=== PATIENT | female | born 1980 | race Caucasian/White ===

== ENCOUNTER 2019-07-29 06:51 | Emergency (ER) | payer OTHER, SELFPAY ==
[2019-07-29 06:54] VITALS: BP 130/68; PULSE 77; RESP 18; TEMP 36.7; O2SAT 100; BMI 25.8
--- NOTE | 2019-07-29 07:10 | CT_ITS ---
WS: [id number] CT ABDOMEN PELVIS TECHNIQUE: Noncontrast and Contrast-enhanced CT of the abdomen and pelvis with coronal and sagittal r eformatted images. CLINICAL INFORMATION: abd pain COMPARISON: April 29, 2014 DLP: 883.19 mGy.cm (accession [id number]), 1234.69 mGy.cm (accession [id number]) All CT scans at [facility] use at least one of these dose optimization techniques: automat ed exposure control; mA and/or kV adjustment per patient size (includes targeted exams where dose is matched to clinical indication); or iterative reconstruction. FINDINGS: No obstructing renal or ureteral calculi. Tiny nonobstructing right calyceal tip calculus. Normal glenis al parenchymal enhancement. No hydronephrosis. Small left renal cyst. Normal liver. Normal gallbladder. Normal spleen. Pancreas is normal. Lung bases are well aerated. Nor mal caliber abdominal aorta. Adrenal glands are normal. Normal GE junction. Peripheral enhancing hemorrhagic or corpus luteum cyst right ovary measuring 3.6 x 3.2 CCM. Small kelsea unt of fluid around the right ovary. Small amount of free fluid in the cul-de-sac. No evidence of small or large bowel obstruction. Normal terminal ileum and ileocecal valve. Notified Valerio Velázquez DO at 07/29/2019 8:[address]/CT kidney stone [id number] IMPRESSION: 1. No obstructing renal or ureteral calculi. 2. Peripheral enhancing right ovarian cyst likely hemorrhagic or corpus luteum Cyst measuring 3.6 x 3.2 CM. This can be followed up with ultrasound in one to 2 menstrual cycles. 3. Small amount of free fluid in the cul-de-sac. 4. No hydronephrosis.
--- NOTE | 2019-07-29 07:10 | CT_ITS ---
WS: [id number] CT ABDOMEN PELVIS TECHNIQUE: Noncontrast and Contrast-enhanced CT of the abdomen and pelvis with coronal and sagittal r eformatted images. CLINICAL INFORMATION: abd pain COMPARISON: April 29, 2014 DLP: 883.19 mGy.cm (accession [id number]), 1234.69 mGy.cm (accession [id number]) All CT scans at [facility] use at least one of these dose optimization techniques: automat ed exposure control; mA and/or kV adjustment per patient size (includes targeted exams where dose is matched to clinical indication); or iterative reconstruction. FINDINGS: No obstructing renal or ureteral calculi. Tiny nonobstructing right calyceal tip calculus. Normal glenis al parenchymal enhancement. No hydronephrosis. Small left renal cyst. Normal liver. Normal gallbladder. Normal spleen. Pancreas is normal. Lung bases are well aerated. Nor mal caliber abdominal aorta. Adrenal glands are normal. Normal GE junction. Peripheral enhancing hemorrhagic or corpus luteum cyst right ovary measuring 3.6 x 3.2 CCM. Small kelsea unt of fluid around the right ovary. Small amount of free fluid in the cul-de-sac. No evidence of small or large bowel obstruction. Normal terminal ileum and ileocecal valve. Notified Valerio Velázquez DO at 07/29/2019 8:[address]/CT abdomen pelvis w con* [id number] IMPRESSION: 1. No obstructing renal or ureteral calculi. 2. Peripheral enhancing right ovarian cyst likely hemorrhagic or corpus luteum Cyst measuring 3.6 x 3.2 CM. This can be followed up with ultrasound in one to 2 menstrual cycles. 3. Small amount of free fluid in the cul-de-sac. 4. No hydronephrosis.
--- NOTE | 2019-07-29 07:14 | ED_ITS ---
HPI - Abdominal Pain General: Chief Complaint: Abdominal Pain Stated Complaint: abd pain/vomiting Time Seen by Provider: 07/29/19 06:56 History of Present Illness: Associated Symptoms: Reports nausea and vomiting Related Data: Date of Last Menstrual Period: 07/29/19 Review of Systems General: Reports: 10 or more systems reviewed and unremarkable except in HPI and below GI: Reports: abdominal pain, nausea and vomiting PFSH ED PFSH: Social History Smoking and tobacco status: former smoker Female Reproductive History: Date of last menstrual period: 07/29/19 Physical Exam Const: COMMON NORMALS: average body habitus, patient oriented x3, no limitations, alert and well nourished GENERAL APPEARANCE: in distress and ill appearing HENMT: COMMON NORMALS: normocephalic, atraumatic, hearing grossly normal bilaterally, external ears normal, EAC's normal, TM's normal bilaterally, Normal external nose present, Normal nasal mucous membranes and turbinates present, moist oral mucous membranes, oropharynx normal, dentition normal and gingiva normal HEAD & SCALP: normocephalic and atraumatic NOSE: Normal external nose present and Normal nasal mucous membranes and turbinates present EXTERNAL EAR: Yes external ears normal EXTERNAL AUDITORY CANAL: EAC's normal TYMPANIC MEMBRANE: TM's normal bilaterally Eye: COMMON NORMALS: Equal, round and reactive pupils present, EOMs intact bilaterally, conjunctivae normal, no scleral icterus, no papilledema, normal visual sierra by confrontation and fundi normal bilaterally CONJUNCTIVA: Yes conjunctivae normal PUPIL: Yes Equal, round and reactive pupils present DIRECT OPHTHALMOSCOPY: Yes no papilledema and Yes fundi normal bilaterally Neck/C-Spine: COMMON NORMALS: full ROM, no lymphadenopathy, supple, no meningeal signs, no JVD, Thyroid normal and No carotid bruits THYROID: Thyroid normal Chest: COMMONS NORMALS: normal inspection of the chest and normal palpation of entire chest wall Resp: COMMON NORMALS: normal respiratory effort, No retractions, No use of accessory muscles, clear to auscultation bilaterally and percussion normal AUSCULTATION: clear to auscultation bilaterally PERCUSSION: percussion normal Cardio: COMMON NORMALS: no JVD, regular rate, regular rhythm, S1 normal heart sound present, S2 normal heart sound present, No gallops present (Cardio), No clicks present (Cardio), No murmurs present (Cardio), No rub (Cardio) and Peripheral pulses 2+ throughout RATE: regular rate RHYTHM: regular rhythm HEART SOUNDS: S1 normal heart sound present and S2 normal heart sound present PERIPHERAL PULSES: Peripheral pulses 2+ throughout GI: COMMON NORMALS: Soft to palpation, No hepatosplenomegaly present, no masses and no bruits PALPATION: Yes Soft to palpation, Yes Tenderness to palpation present (GI) and Yes No hepatosplenomegaly present : COMMON NORMALS: Yes no CVA tenderness and Yes normal external appearance BLADDER/KIDNEY EXAM: Yes no CVA tenderness Back/Pelvis: COMMON NORMALS: no CVA tenderness, thoracic and lumbar spine normal to inspection, no thoracic nor lumbar tenderness, thoraco-lumbar ROM normal and straight leg raise negative bilaterally Extremity: COMMON NORMALS: normal to inspection, full ROM, capillary refill normal, no joint enlargement, no clubbing, cyanosis or edema, no calf tenderness and no pedal edema Neuro: COMMON NORMALS: patient oriented x3 SENSORIUM/ORIENTATION: Yes alert MENINGEAL SIGNS: Yes no meningeal signs Skin: COMMON NORMALS: no rashes or lesions noted, no wounds, turgor normal, no jaundice, no petechiae and no mottling GENERAL SKIN EXAM: no rashes or les ions noted and turgor normal Procedures Intubation Mg Given: 20 Mg Given: 200 Course Vital Signs: Vital signs: Vital Signs Temperature 98.1 F 07/29/19 06:54 Pulse Rate 70 07/29/19 08:30 Respiratory Rate 18 07/29/19 08:30 Blood Pressure 113/64 07/29/19 08:30 Pulse Oximetry 100 07/29/19 08:30 MDM - Abdominal Pain Lab Data: Labs: Lab Results 07/29/19 07/29/19 07/29/19 Range/Units 07:18 07:18 07:18 WBC 4.5 (4.0-10.0) 10^3/ uL RBC 4.61 (4.1-5.3) 10^6/u L Hgb 12.8 (11.5-15.3) g/dL Hct 39.5 (37.0-47.0) % MCV 85.7 (81-99) fL MCH 27.8 L (28.0-34.0) pg MCHC 32.4 (30.0-36.0) g/dL RDW 13.2 (12.1-15.1) % Plt Count 164 (130-400) 10^3/c mm MPV 11.7 H (7.4-10.4) fL Neut % (Auto) 70.9 % Lymph % (Auto) 21.6 % Kendall % (Auto) 7.3 % Eos % (Auto) 0.0 % Baso % (Auto) 0.0 % Neut # (Auto) 3.2 (1.8-7.7) 10^3/u L Lymph # (Auto) 1.0 (0.8-4.8) 10^3/u L Kendall # (Auto) 0.3 (0.2-0.9) 10^3/u L Eos # (Auto) 0.0 (0.0-0.8) 10^3/u L Baso # (Auto) 0.0 (0.0-0.1) 10^3/u L Nucleated RBC % (a uto) 0 % Nucleated RBCs # 0.0 /100WBC Sodium 139 (136-145) mmol/L Potassium 4.0 (3.5-5.1) mmol/L Chloride 104 (98-107) mmol/L Carbon Dioxide 23 (22-29) mmol/L Anion Gap 16.0 (5-19) BUN 19 (6-20) mg/dL Creatinine 0.7 (0.5-0.9) mg/dL GFR Calculation 94.2 (90-130) mL/min Glucose 127 H (65-115) mg/dL Calculated Osmolal ity 286 (285-295) mOsm/k g Lactate 1.1 (0.5-2.2) mmol/L Calcium 9.8 (8.5-10.5) mg/dL Total Bilirubin 0.3 (0.15-1.2) mg/dL AST 19 (0-32) U/L ALT 18 (0-33) U/L Alkaline Phosphata se 54 (35-105) IU/L Total Protein 7.6 (6.6-8.7) g/dL Albumin 4.4 (3.5-5.2) g/dL Globulin 3.2 (1.3-4.6) g/dL Lipase 36 (13-60) U/L HCG, Qual (Negative) Urine Color (Yellow) Urine Appearance (CLEAR) Urine pH (5-7) Ur Specific Gravit y (1.005-1.030) Urine Protein (Negative) Urine Glucose (UA) (Normal) Urine Ketones (Negative) Urine Blood (Negative) Urine Nitrate (Negative) Urine Bilirubin (NEGATIVE) Urine Urobilinogen (Negative) mg/dL Ur Leukocyte Regina ase (Negative) Urine RBC (0-2) /hpf Urine WBC (0-5) /hpf Ur Squamous Epith Cells (0-5) Urine Bacteria (NONE) 07/29/19 07/29/19 Range/Units 07:18 08:30 WBC (4.0-10.0) 10^3/ uL RBC (4.1-5.3) 10^6/u L Hgb (11.5-15.3) g/dL Hct (37.0-47.0) % MCV (81-99) fL MCH (28.0-34.0) pg MCHC (30.0-36.0) g/dL RDW (12.1-15.1) % Plt Count (130-400) 10^3/c mm MPV (7.4-10.4) fL Neut % (Auto) % Lymph % (Auto) % Kendall % (Auto) % Eos % (Auto) % Baso % (Auto) % Neut # (Auto) (1.8-7.7) 10^3/u L Lymph # (Auto) (0.8-4.8) 10^3/u L Kendall # (Auto) (0.2-0.9) 10^3/u L Eos # (Auto) (0.0-0.8) 10^3/u L Baso # (Auto) (0.0-0.1) 10^3/u L Nucleated RBC % (a uto) % Nucleated RBCs # /100WBC Sodium (136-145) mmol/L Potassium (3.5-5.1) mmol/L Chloride (98-107) mmol/L Carbon Dioxide (22-29) mmol/L Anion Gap (5-19) BUN (6-20) mg/dL Creatinine (0.5-0.9) mg/dL GFR Calculation (90-130) mL/min Glucose (65-115) mg/dL Calculated Osmolal ity (285-295) mOsm/k g Lactate (0.5-2.2) mmol/L Calcium (8.5-10.5) mg/dL Total Bilirubin (0.15-1.2) mg/dL AST (0-32) U/L ALT (0-33) U/L Alkaline Phosphata se (35-105) IU/L Total Protein (6.6-8.7) g/dL Albumin (3.5-5.2) g/dL Globulin (1.3-4.6) g/dL Lipase (13-60) U/L HCG, Qual Negative (Negative) Urine Color Red (Yellow) Urine Appearance Bloody A (CLEAR) Urine pH 6.0 (5-7) Ur Specific Gravit y 1.005 (1.005-1.030) Urine Protein Neg (Negative) Urine Glucose (UA) Norm (Normal) Urine Ketones Negative (Negative) Urine Blood 3+ H (Negative) Urine Nitrate Negative (Negative) Urine Bilirubin Neg (NEGATIVE) Urine Urobilinogen Norm (Negative) mg/dL Ur Leukocyte Regina ase Negative (Negative) Urine RBC >100 H (0-2) /hpf Urine WBC 0-4 H (0-5) /hpf Ur Squamous Epith Cells 0-4 H (0-5) Urine Bacteria Trace (NONE) Discharge Plan Discharge Patient Disposition: Home, Self-Care Clinical Impression: Hemorrhagic cyst of right ovary Ovarian cyst Qualifiers: Laterality: right Qualified Code(s): N83.201 - Unspecified ovarian cyst, right side Condition: Stable Prescriptions: New Tylenol-Codeine #3 300-30 mg tablet 1 tab PO Q4H PRN (Reason: pain) Qty: 20 RF: 0 No Action No Known Home Medications RF: 0 Discharge Orders: Discharge Order (Routine); Ordered 07/29/19 Ordered By: Valerio Velázquez Referrals: Xavier Johns MD [Primary Care Provider] - Coding Level of Care Code ED Sleeve [place] [facility] for [facility] Fwd Exam Comprehensive
[2019-07-29] MEDS: ondansetron 2 mg/ML SDV 2 mL 8 MG IVP (07:25)
[2019-07-29 07:27] VITALS: RESP 18
[2019-07-29] MEDS: morphine 4 mg/mL SDV 1 mL IVP (07:27)
[2019-07-29] MEDS: sodium chloride 0.9% 1,000 ML 999 ML IV (07:30)
[2019-07-29 07:33] LABS: Hematocrit 39.5 % (37.0-47.0); Hemoglobin 12.8 g/dL (11.5-15.3); Lymphocytes % 21.6 %; Mean Corpuscular HGB Conc 32.4 g/dL (30.0-36.0); Mean Corpuscular Hemoglobin 27.8 pg (28.0-34.0); Mean Corpuscular Volume 85.7 fL (81-99); Mean Platelet Volume 11.7 fL (7.4-10.4); Monocytes # 0.3 10^3/uL (0.2-0.9); Monocytes % 7.3 %; Neutrophils # 3.2 10^3/uL (1.8-7.7); Neutrophils % 70.9 %; Nucleated Red Blood Cells % 0 %; Platelet Count 164 10^3/cmm (130-400); Red Blood Count 4.61 10^6/uL (4.1-5.3); Red Cell Distribution Width 13.2 % (12.1-15.1); White Blood Count 4.5 10^3/uL (4.0-10.0)
[2019-07-29 07:36] VITALS: BP 120/80; PULSE 80; RESP 18; O2SAT 100
[2019-07-29 07:40] LABS: HCG, Serum Qual Negative (Negative)
[2019-07-29 07:49] LABS: Alanine Aminotransferase 18 U/L (0-33); Albumin Level 4.4 g/dL (3.5-5.2); Alkaline Phosphatase 54 IU/L (35-105); Aspartate Amino Transferase 19 U/L (0-32); Blood Urea Nitrogen 19 mg/dL (6-20); Calcium 9.8 mg/dL (8.5-10.5); Carbon Dioxide 23 mmol/L (22-29); Chloride 104 mmol/L (98-107); Globulin 3.2 g/dL (1.3-4.6); Glomerular Filtration Rate 94.2 mL/min (90-130); Glucose 127 mg/dL (65-115); Lipase 36 U/L (13-60); Osmolality Calculated 286 mOsm/kg (285-295); Sodium 139 mmol/L (136-145); Total Bilirubin 0.3 mg/dL (0.15-1.2); Total Protein 7.6 g/dL (6.6-8.7)
[2019-07-29] MEDS: iohexol 300 mg/mL 100 mL Btl IV (08:04)
[2019-07-29 08:30] VITALS: BP 113/64; PULSE 70; RESP 18; O2SAT 100
[2019-07-29 08:30] LABS: Lactate (Lactic Acid level) 1.1 mmol/L (0.5-2.2)
[2019-07-29 09:18] LABS: Bilirubin Urine Neg (NEGATIVE); Blood Urine 3+ (Negative); Glucose Urine UA Norm (Normal); Ketones Urine Negative (Negative); Leukocyte Esterase Urine Negative (Negative); Nitrate Urine Negative (Negative); Protein Urine Neg (Negative); Specific Gravity, Urine 1.005 (1.005-1.030); Urine Appearance Bloody (CLEAR); Urine Color Red (Yellow); Urobilinogen Urine Norm (Negative)
[2019-07-29 09:19] LABS: Add Urine Culture? No; Add Urine Microscopic? YES; Bacteria Urine TRACE; RBC Urine >100 /hpf (0-2); Squamous Epithelial Cell Urine 0-4 (0-5); WBC Urine 0-4 /hpf (0-5)
[2019-07-29 10:03] VITALS: BP 117/73; PULSE 80; RESP 18; O2SAT 100
== END 2019-07-29 10:03 | disposition home or self-care (01) ==
PROVIDERS: Emergency Provider Family Medicine; Family Provider Internal Medicine; PCP Internal Medicine
DX: N83.201 Unspecified ovarian cyst, right side (principal); Z87.891 Personal history of nicotine dependence
CPT/HCPCS: 12345; 74176; 74177; 80053; 81001; 83605; 83690; 84703; 85025; 96361; 96374; 96375; 99282; 99283; A9270; J2270; J2405; J7030; Q9967

== ENCOUNTER 2020-01-23 06:42 | Outpatient (CLI) | payer OTHER, SELFPAY ==
--- NOTE | 2020-01-23 07:15 | USCV_ITS ---
Zaynab Drew Age: 39 Gender: F : 1980 Exam Date: 01/23/2020 07:10 Ordering Phys: Allison Burgos MD ([email or web address]) Technologist: Jennifer Mcnulty Exam Location: [facility] [place] Indication: SOB/CP BP: 95 / 63 HR: 84 Rhythm: Sinus Technical Quality: Adequate MEASUREMENTS (Male / Female) Normal Values 2D ECHO LV Diastolic Diameter PLAX 4.5 cm 4.2 - 5.9 / 3.9 - 5.3 cm LV Systolic Diameter PLAX 3.4 cm LV Chamber Size 2.7 cm IVS Diastolic Thickness 0.9 cm 0.6 - 1.0 / 0.6 - 0.9 cm IVS Systolic Thickness 1.3 cm LVPW Diastolic Thickness 1.3 cm 0.6 - 1.0 / 0.6 - 0.9 cm LVPW Systolic Thickness 1.7 cm RV Chamber Size 2.7 cm LVOT Diameter 2.0 cm LV Ejection Fraction 2D Teich 46.4 % LV Ejection Fraction MOD 2C 60.0 % LV Ejection Fraction 2C AL 60.1 % LA Diameter 4.0 cm LA Width 2.9 cm LA Height 4.4 cm RA Width 3.1 cm RA Height 3.1 cm Aorta at Sinotubular Diameter 2.5 cm M-MODE LV Diastolic Diameter MM 4.1 cm 4.2 - 5.9 / 3.9 - 5.3 cm LV Systolic Diameter MM 2.5 cm LV Ejection Fraction MM Teich 68.9 % IVS Diastolic Thickness MM 0.9 cm 0.6 - 1.0 / 0.6 - 0.9 cm IVS Systolic Thickness MM 1.3 cm LVPW Diastolic Thickness MM 0.6 cm 0.6 - 1.0 / 0.6 - 0.9 cm LVPW Systolic Thickness MM 1.5 cm Aortic Annulus Diameter 2.9 cm LA Ao Ratio MM 1.6 MV E Point Septal Separation 0.7 cm DOPPLER AV Peak Velocity 127.0 cm/s LVOT Peak Velocity 108.0 cm/s AV Area Cont Eq vti 2.8 cm squared AV Area Cont Eq pk 2.8 cm squared MV Area PHT 3.1 cm squared Mitral E to A Ratio 1.2 MV E' Velocity 58.0 cm/s Mitral E to MV E' Ratio 7.4 Mitral E to LV E' Lateral Ratio 5.9 Mitral E to LV E' Septal Ratio 10.0 TR Peak Velocity 245.8 cm/s TR Peak Gradient 24.2 mmHg TV Peak E Velocity 75.0 cm/s Right Atrial Pressure 3.0 mmHg Pulmonary Artery Systolic Pressu 27.2 mmHg PV Peak Velocity 78.0 cm/s RV Acceleration Time 0.1 s RV Ejection Time 0.3 s RV AcT/ET 0.4 FINDINGS Left Ventricle Normal left ventricular cavity size. Normal left ventricular systolic function. No regional wall motion abnormalities. Left ventricular ejection fraction is estimated at 65 %. Grade II/IV diastolic dysfunction, moderately elevated filling pressures. Right Ventricle The right ventricle is normal in size and function. Right Atrium The right atrium is normal in size. Left Atrium The left atrium is normal in size. Mitral Valve Mildly thickened mitral valve. Mild mitral annular calcification. No mitral valve stenosis. Trace mitral valve regurgitation. Aortic Valve Mild aortic valve calcification. No aortic valve stenosis. Trace aortic valve regurgitation. Tricuspid Valve Mild tricuspid valve regurgitation. Pulmonic Valve Structurally normal pulmonic valve without significant stenosis. There is no pulmonic regurgitation. Pericardium Normal pericardium without effusion. Aorta Normal ascending aorta dimension. CONCLUSIONS 1-Normal left ventricular cavity size. Normal left ventricular systolic function. No regional wall motion abnormalities. Left ventricular ejection fraction is estimated at 65 %. Grade II/IV diastolic dysfunction, moderately elevated filling pressures. 2-Mildly thickened mitral valve. Mild mitral annular calcification. No mitral valve stenosis. Trace mitral valve regurgitation. 3-Mild aortic valve calcification. No aortic valve stenosis. Trace aortic valve regurgitation. 4-Mild tricuspid valve regurgitation. 5-There is no pericardial effusion. 6-Pulmonary artery systolic pressure is within normal limits. 7-Right atrial pressure is around 5 mm of mercury. 8-There are no prior echocardiogram studies to compare. Allison Burgos MD (Electronically Signed) Final Date: 24 January 2020 18:52 S
== END 2020-01-23 06:43 | disposition home or self-care (01) ==
LOC: US 06:43
PROVIDERS: PCP Internal Medicine; Visit Provider Internal Medicine Cardiovascular Disease
DX: R06.02 Shortness of breath (principal); R07.9 Chest pain, unspecified; I08.3 Combined rheumatic disorders of mitral, aortic and tricuspid valves
CPT/HCPCS: 93306

== ENCOUNTER → 2020-06-11 15:34 | Outpatient (BNVA) | payer OTHER, SELFPAY | PROVIDERS: PCP Internal Medicine; Visit Provider Internal Medicine | DX: R53.83 Other fatigue (principal); H65.93 Unspecified nonsuppurative otitis media, bilateral; H83.02 Labyrinthitis, left ear | CPT/HCPCS: 80053; 83550; 84443; 85025 ==

== ENCOUNTER → 2020-09-11 12:08 | Outpatient (BNVA) | payer OTHER, SELFPAY | PROVIDERS: PCP Internal Medicine; Visit Provider Nurse Practitioner | DX: S89.92XA Unspecified injury of left lower leg, initial encounter (principal); X58.XXXA Exposure to other specified factors, initial encounter | CPT/HCPCS: 73562 ==

== ENCOUNTER 2020-11-23 08:48 | Outpatient (CLI) | payer OTHER, SELFPAY ==
--- NOTE | 2020-11-23 08:45 | US_ITS ---
WS: [id number] Complete ABDOMINAL ULTRASOUND HISTORY: acute abdominal pain COMPARISON: None available. Liver: 17.8 cm in length. Liver is top normal size to slightly enlarged. Mildly coarsened echotexture from hepatic steatosis. No mass identified. No bile duct dilatation. Gallbladder: Normally distended with no gallstones, wall thickening or pericholecystic fluid. Gallbladder wall thickness: 0.2 cm. Pancreas: Normal size and echogenicity. CBD: 0.6 cm. Right kidney: 10.5 cm x 5.4 cm x 4.4 cm. No mass, cortical thickening or hydronephrosis. Left kidney: 11.6 cm x 4.9 cm x 5.3 cm. No mass, cortical thickening or hydronephrosis. Spleen: Spleen is mildly enlarged at 17.7 cm in length. No mass within the spleen. Abdominal aorta and IVC are within normal limits. No ascites. US/US abdomen complete* [id number] IMPRESSION: 1. Mild splenomegaly. Spleen is increased in size since 07/29/2019. 2. Mild hepatic steatosis. 3. Normal gallbladder.
--- NOTE | 2020-11-23 11:00 | US_ITS ---
WS: [id number] TRANSABDOMINAL PELVIC AND TRANSVAGINAL PELVIC ULTRASOUND HISTORY: h/o ovarian cyst COMPARISON: None available. Uterus: 7.5 cm x 5.8 cm x 3.8 cm. Normal size anteverted uterus. No fibroid or mass. Endometrium: 0.8 cm. Normal homogeneity. Normal vascularity. Right ovary: 3.4 cm x 3.1 cm x 2.6 cm. Normal size ovary with normal vascularity. Small follicles. Left ovary: 2.4 cm x 1.9 cm x 1.9 cm. Normal size ovary with normal vascularity. Small follicles. No free fluid. US/US pelvic with transvaginal IMPRESSION: Negative transvaginal and transabdominal pelvic ultrasound.
== END 2020-11-23 08:49 | disposition home or self-care (01) ==
LOC: RAD 08:51
PROVIDERS: PCP Internal Medicine; Visit Provider Internal Medicine
DX: R10.9 Unspecified abdominal pain (principal); Z87.898 Personal history of other specified conditions; R16.1 Splenomegaly, not elsewhere classified; K76.0 Fatty (change of) liver, not elsewhere classified
CPT/HCPCS: 76700; 76830; 76856

== ENCOUNTER → 2021-09-26 10:54 | Outpatient (BNVA) | payer OTHER, SELFPAY | PROVIDERS: PCP Internal Medicine; Visit Provider Internal Medicine | DX: R05.8 Other specified cough (principal); R53.83 Other fatigue | CPT/HCPCS: 80053; 83550; 84443; 85025 ==

== ENCOUNTER 2022-01-05 15:54 | Emergency (ER) | payer OTHER, SELFPAY ==
[2022-01-05 16:22] VITALS: BP 110/78; PULSE 86; RESP 18; TEMP 36.8; O2SAT 97; BMI 26.4
[2022-01-05 17:42] LABS: Add Urine Microscopic? YES; Bilirubin Urine Neg (Negative); Blood Urine 3+ (Negative); Glucose Urine UA Norm (Normal); Ketones Urine 1+ (Negative); Leukocyte Esterase Urine 2+ (Negative); Nitrate Urine Negative (Negative); Protein Urine Neg (Negative); Urine Appearance Hazy (CLEAR); Urine Color Yellow (Yellow); Urobilinogen Urine Norm (Negative); pH Urine 5 (5-7)
[2022-01-05 17:43] LABS: Add Urine Culture? Yes; Amorphous Sediment Urine 2+ /hpf; Bacteria Urine 1+ /hpf; Mucus Urine 1+ /hpf
[2022-01-05 17:44] LABS: Basophils % 0.3 %; Eosinophils % 0.4 %; Hematocrit 39.2 % (37.0-47.0); Hemoglobin 12.5 g/dL (11.5-15.3); Lymphocytes # 1.3 10^3/uL (0.8-4.8); Lymphocytes % 16.4 %; Mean Corpuscular HGB Conc 31.9 g/dL (30.0-36.0); Mean Corpuscular Hemoglobin 26.1 pg (28.0-34.0); Mean Corpuscular Volume 81.8 fl (81-99); Mean Platelet Volume 11.7 fL (7.4-10.4); Monocytes # 0.6 10^3/uL (0.2-0.9); Monocytes % 7.9 %; Neutrophils # 5.89 10^3/uL (1.8-7.7); Neutrophils % 74.7 %; Nucleated Red Blood Cells % 0 %; Platelet Count 253 10^3/cmm (130-400); Red Blood Count 4.79 10^6/uL (4.1-5.3); Red Cell Distribution Width 14.4 % (12.1-15.1); White Blood Count 7.9 10^3/uL (4.0-10.0)
[2022-01-05 18:12] LABS: Alanine Aminotransferase 19 U/L (0-33); Albumin Level 4.2 g/dL (3.5-5.2); Alkaline Phosphatase 70 U/L (35-105); Anion Gap 13.1 (5-19); Aspartate Amino Transferase 18 U/L (0-32); Blood Urea Nitrogen 15 mg/dL (6-20); Calcium 9.7 mg/dL (8.5-10.5); Carbon Dioxide 25 mmol/L (22-29); Chloride 102 mmol/L (98-107); Globulin 3.6 g/dL (1.3-4.6); Glomerular Filtration Rate 92.7 mL/min (90-130); Glucose 93 mg/dL (65-115); Lipase 30 U/L (13-60); Osmolality Calculated 283 mOsm/kg (285-295); Potassium 4.1 mmol/L (3.5-5.1); Sodium 136 mmol/L (136-145); Total Bilirubin 0.2 mg/dL (0.15-1.2); Total Protein 7.8 g/dL (6.6-8.7)
--- NOTE | 2022-01-05 18:52 | CTR_ITS ---
PROCEDURE INFORMATION: Exam: CT Abdomen And Pelvis Without Contrast Exam date and time: 01/05/2022 8:23 PM Age: 41 years old Clinical indication: Abdominal pain; Flank; Right; Additional info: Right lower quadrant pain TECHNIQUE: Imaging protocol: Computed tomography of the abdomen and pelvis without contrast. Radiation optimization: All CT scans at this facility use at least one of these dose optimization techniques: automated exposure control; mA and/or kV adjustment per patient size (includes targeted exams where dose is matched to clinical indication); or iterative reconstruction. COMPARISON: CT abdomen pelvis w con* [id number] 07/29/2019 7:49 AM RADIATION DOSE METRICS: Total DLP (mGy-cm): 669.98 FINDINGS: Lungs: Emphysematous changes. Liver: Normal. No mass. Gallbladder and bile ducts: Normal. No calcified stones. No ductal dilation. Pancreas: Normal. No ductal dilation. Spleen: Normal. No splenomegaly. Adrenal glands: Normal. No mass. Kidneys and ureters: Normal. No hydronephrosis. Stomach and bowel: Prominent fluid throughout the small bowel without dilation suggestive of an enteritis. Appendix: No evidence of appendicitis. Intraperitoneal space: Unremarkable. No free air. No significant fluid collection. Vasculature: Unremarkable. No abdominal aortic aneurysm. Lymph nodes: Unremarkable. No enlarged lymph nodes. Urinary bladder: Unremarkable as visualized. Reproductive: Right ovary 3.5 cm cystic lesion, more prominent compared to prior exam, pelvic ultrasound could further evaluate this. Bones/joints: Unremarkable. No acute fracture. Soft tissues: Unremarkable. CT/CT kidney stone [id number] IMPRESSION: 1. Prominent fluid throughout the small bowel without dilation suggestive of an enteritis. 2. Emphysematous changes. 3. Right ovary 3.5 cm cystic lesion, more prominent compared to prior exam, pelvic ultrasound could further evaluate this.
--- NOTE | 2022-01-05 20:17 | ED_ITS ---
HPI - Abdominal Pain General: Chief Complaint: Abdominal Pain Stated Complaint: Abd pain Time Seen by Provider: 01/05/22 20:17 History of Present Illness: Ms. Drew is a 41-year-old lady with history of diastolic heart failure presenting to the emergency department due to right flank pain. Onset of symptoms was this morning and severe. Associated with nausea vomiting and chills with pain was at its worst. Subsequently improved but still present. Right side without significant radiation. Aching and pulling in quality. Worse with movement and palpation and walking. Denies frequent similar episodes in the past though has had rare episodes. No known history of kidney stones. No urinary symptoms. No other specific changes in health, exacerbating, or alleviating factors identified. Onset (ago): hour(s) Pain Consistency: constant Location: R flank Severity: severe Quality: aching and other Radiation: none Migration to: no migration Exacerbating factors: movement Associated Symptoms: Reports nausea Review of Systems General: Reports: 10 or more systems reviewed and unremarkable except in HPI and below GI: Reports: nausea PFSH ED PFSH: Medical History No pertinent past medical history PVC (premature ventricular contraction) Surgical History History of dilation and curettage Family History Mother Breast cancer age 63 Family/Other Breast cancer paternal aunt Social History Smoking and tobacco status: former smoker Quit status (tobacco): has quit using tobacco Year quit tobacco: 2007 Alcohol intake: current Alcohol intake frequency: few times a month History of recent travel: No Physical Exam Const: COMMON NORMALS: alert GENERAL APPEARANCE: cooperative and well developed HENMT: COMMON NORMALS: normocephalic and atraumatic HEAD & SCALP: normocephalic and atraumatic Eye: COMMON NORMALS: conjunctivae normal CONJUNCTIVA: Yes conjunctivae normal SCLERA: sclerae normal Neck/C-Spine: COMMON NORMALS: supple GENERAL: Yes trachea midline Resp: COMMON NORMALS: clear to auscultation bilaterally EFFORT & INSPECTIO N: Yes able to speak in complete sentences AUSCULTATION: clear to auscultation bilaterally Cardio: COMMON NORMALS: regular rate and regular rhythm RATE: regular rate RHYTHM: regular rhythm GI: COMMON NORMALS: Soft to palpation PALPATION: Yes Soft to palpation, Yes Tenderness to palpation present (GI), No Guarding due to palpation present (GI) and No Rigid due to palpation PERCUSSION: normal to percussion Extremity: GENERAL: Yes normal exam except as noted and No edema Neuro: COMMON NORMALS: moves all extremities SENSORIUM/ORIENTATION: Yes alert and No Orientation impaired Psych: COMMON NORMALS: mental status grossly normal and Normal thought process present THOUGHT PROCESS: Normal thought process present Course Vital Signs: Vital signs: Vital Signs Temperature 98.2 F 01/05/22 16:22 Pulse Rate 70 01/05/22 21:30 Respiratory Rate 15 01/05/22 21:34 Blood Pressure 132/79 01/05/22 20:55 Pulse Oximetry 100 01/05/22 21:30 Oxygen Delivery Me thod 01/05/22 21:30 MDM - Abdominal Pain Medical Decision Making 41-year-old lady presenting with flank pain. Patient is nontoxic however quite uncomfortable appearing on exam. Laboratory studies with no leukocytosis, normal hemoglobin. Metabolic panel without significant abnormality, renal function is preserved. Urinalysis with small amount of blood and some squamous epithelial contamination which limits interpretation. CT with prominent fluid throughout the small bowel suggesting enteritis. Right ovarian cystic lesion was discussed with the patient. In review of records the patient did have ultrasound after previous identification of cyst which did not reveal similar finding. Though it is possible that this has recurred the fact that it is in very similar location it is odd and concerning, this was discussed with patient. Plan to refer for outpatient management/imaging. Patient improved on reassessment after symptom treatment. Most likely cause of symptoms is enteritis. The results of ED evaluation were discussed with the patient including prescriptions and/or symptomatic cares (if applicable) including appropriate and responsible use, followup plan, and return precautions. The patient verbalized understanding and felt safe for discharge. Medical Records I reviewed the patient's medical records. Lab Data I reviewed the patient's lab results. : 01/05/22 17:35 01/05/22 17:35 Labs/Radiology: Radiology Impressions Abdomen/Pelvis CT 01/05/22 18:52 IMPRESSION: 1. Prominent fluid throughout the small bowel without dilation suggestive of an enteritis. 2. Emphysematous changes. 3. Right ovary 3.5 cm cystic lesion, more prominent compared to prior exam, pelvic ultrasound could further evaluate this. Laboratory Results WBC 7.9 10^3/uL (4.0-10.0) 01/05/22 17:35 RBC 4.79 10^6/uL (4.1-5.3) 01/05/22 17:35 Hgb 12.5 g/dL (11.5-15.3) 01/05/22 17:35 Hct 39.2 % (37.0-47.0) 01/05/22 17:35 MCV 81.8 fl (81-99) 01/05/22 17:35 MCH 26.1 pg (28.0-34.0) L 01/05/22 17:35 MCHC 31.9 g/dL (30.0-36.0) 01/05/22 17:35 RDW 14.4 % (12.1-15.1) 01/05/22 17:35 Plt Count 253 10^3/cmm (130-400) 01/05/22 17:35 MPV 11.7 fL (7.4-10.4) H 01/05/22 17:35 Neut % (Auto) 74.7 % 01/05/22 17:35 Lymph % (Auto) 16.4 % 01/05/22 17:35 [place] % (Auto) 7.9 % 01/05/22 17:35 Eos % (Auto) 0.4 % 01/05/22 17:35 Baso % (Auto) 0.3 % 01/05/22 17:35 Neut # (Auto) 5.89 10^3/uL (1.8-7.7) 01/05/22 17:35 Lymph # (Auto) 1.3 10^3/uL (0.8-4.8) 01/05/22 17:35 [place] # (Auto) 0.6 10^3/uL (0.2-0.9) 01/05/22 17:35 Eos # (Auto) 0.0 10^3/uL (0.0-0.8) 01/05/22 17:35 Baso # (Auto) 0.0 10^3/uL (0.0-0.1) 01/05/22 17:35 Nucleated RBC % (auto) 0 % 01/05/22 17:35 Nucleated RBCs # 0.0 /100WBC 01/05/22 17:35 Sodium 136 mmol/L (136-145) 01/05/22 17:35 Potassium 4.1 mmol/L (3.5-5.1) 01/05/22 17:35 Chloride 102 mmol/L (98-107) 01/05/22 17:35 Carbon Dioxide 25 mmol/L (22-29) 01/05/22 17:35 Anion Gap 13.1 (5-19) 01/05/22 17:35 BUN 15 mg/dL (6-20) 01/05/22 17:35 Creatinine 0.7 mg/dL (0.5-0.9) 01/05/22 17:35 GFR Calculation 92.7 mL/min (90-130) 01/05/22 17:35 Glucose 93 mg/dL (65-115) 01/05/22 17:35 Calculated Osmolality 283 mOsm/kg (285-295) L 01/05/22 17:35 Calcium 9.7 mg/dL (8.5-10.5) 01/05/22 17:35 Total Bilirubin 0.2 mg/dL (0.15-1.2) 01/05/22 17:35 AST 18 U/L (0-32) 01/05/22 17:35 ALT 19 U/L (0-33) 01/05/22 17:35 Alkaline Phosphatase 70 U/L (35-105) 01/05/22 17:35 Total Protein 7.8 g/dL (6.6-8.7) 01/05/22 17:35 Albumin 4.2 g/dL (3.5-5.2) 01/05/22 17:35 Globulin 3.6 g/dL (1.3-4.6) 01/05/22 17:35 Lipase 30 U/L (13-60) 01/05/22 17:35 Urine Color Yellow (Yellow) 01/05/22 16:30 Urine Appearance Hazy (CLEAR) A 01/05/22 16:30 Urine pH 5 (5-7) 01/05/22 16:30 Ur Specific [place] 1.030 (1.005-1.030) 01/05/22 16:30 Urine Protein Neg (Negative) 01/05/22 16:30 Urine Glucose (UA) Norm (Normal) 01/05/22 16:30 Urine Ketones 1+ (Negative) H 01/05/22 16:30 Urine Blood 3+ (Negative) H 01/05/22 16:30 Urine Nitrate Negative (Negative) 01/05/22 16:30 Urine Bilirubin Neg (Negative) 01/05/22 16:30 Urine Urobilinogen Norm mg/dL (Negative) 01/05/22 16:30 Ur Leukocyte Esterase 2+ (Negative) H 01/05/22 16:30 Urine RBC 5-10 /hpf (0-2) H 01/05/22 16:30 Urine WBC 5-10 /hpf (0-5) H 01/05/22 16:30 Ur Squamous Epith Cells 5-10 /hpf (0-5) H 01/05/22 16:30 Amorphous Sediment 2+ /hpf 01/05/22 16:30 Urine Bacteria 1+ /hpf (NONE) H 01/05/22 16:30 Urine Mucus 1+ /hpf 01/05/22 16:30 Discharge Plan Discharge Patient Disposition: Home Clinical Impression: Enteritis, Flank pain, Nausea & vomiting, Ovarian cyst, Hematuria Condition: Stable Prescriptions: No Action escitalopram oxalate [Lexapro] 20 mg tablet 20 mg PO DAILY Qty: 90 3RF fluticasone propion-salmeterol [Advair Diskus] 500-50 mcg/dose blister with device 1 inh inhalation BID Qty: 60 5RF ondansetron 4 mg tablet,disintegrating 4 mg PO Q8H PRN (Reason: nausea and vomiting) Qty: 15 0RF pantoprazole 40 mg tablet,delayed release (DR/EC) 40 mg PO DAILY Qty: 90 3RF dicyclomine 10 mg capsule 10 mg PO QID PRN (Reason: cramps) Qty: 60 0RF alprazolam [Xanax] 0.25 mg tablet 0.25 mg PO BID PRN (Reason: anxiety) Qty: 14 0RF Discharge Orders: Discharge ED (Routine); Ordered 01/05/22 Ordered By: Camden Hawkins Referrals: Xavier Johns MD [Primary Care Provider] - Discharge Diet: Advance as tolerated and Clear Liquid Discharge Activity: Increase activity as tolerated Patient Instructions: Ovarian Cyst (ED), Hematuria (ED), Enteritis (ED), Pain Management Activity Restrictions/Additional Instructions: Thank you for visiting the emergency department. You were seen and evaluated for abdominal pain with nausea and vomiting. You were found to have enteritis which likely explain symptoms. Additional findings included ovarian cyst as discussed. I will message case management for further evaluation as discussed. Please follow-up with your primary care provider. I recommend repeat urinalysis in 2 weeks, once symptoms have resolved, for reevaluation of blood in urine. Return to the emergency department for uncontrolled pain, inability tolerate oral intake, or anything else that you are concerned about a feel needs emergency department evaluation. Coding Level of Care Code ED Literacy Education Professor for Howie Chong
[2022-01-05] MEDS: ondansetron 2 mg/ML SDV 2 mL 4 MG IVP (20:45)
[2022-01-05] MEDS: ketorolac 30 mg/mL INJ 15 MG IVP (20:46)
[2022-01-05] MEDS: sodium chloride 0.9% 1,000 ML 999 ML IV (20:47)
[2022-01-05 20:55] VITALS: BP 132/79; PULSE 60; RESP 15; O2SAT 100
[2022-01-05 21:30] VITALS: PULSE 70; RESP 16; O2SAT 100
[2022-01-05 21:34] VITALS: RESP 15
[2022-01-05] MEDS: morphine 4 mg/mL SDV 1 mL IVP (21:34)
--- NOTE | 2022-01-08 12:31 | DCPLANNER ---
Addendum entered by Bessie Bonds 02/27/22 10:59: Patient attended both of these appointments Addendum entered by Bessie Bonds 01/29/22 14:29: Patient had a follow up appointment scheduled with [facility] - patient did attend appointment. Patient has a an US scheduled for Friday, February 11, 2022 at 1:15. Clinic will call patient with appointment information. Original Note: business change manager had message to schedule a follow up appointment for patient with [facility]. business change manager sent patients information to the front office staff at [facility]. Patients information will be printed and reviewed. Clinic will call patient with appointment information. business change manager also had message to schedule an outpatient pelvic with [facility] ultrasound. business change manager faxed signed order to centralized scheduling, who will call patient with appointment information.
== END 2022-01-05 22:30 | disposition home or self-care (01) ==
PROVIDERS: Student in an Organized Health Care Education/Training Program; Emergency Provider Emergency Medicine; PCP Internal Medicine
DX: K52.9 Noninfective gastroenteritis and colitis, unspecified (principal); N83.201 Unspecified ovarian cyst, right side; R31.9 Hematuria, unspecified; R11.2 Nausea with vomiting, unspecified; Z87.891 Personal history of nicotine dependence
CPT/HCPCS: 74176; 80053; 81001; 83690; 85025; 87086; 96361; 96374; 96375; 99285; J1885; J2270; J2405; J7030

== ENCOUNTER 2022-01-15 18:42 | Emergency (ER) | payer OTHER, SELFPAY ==
[2022-01-15 19:39] VITALS: BP 136/89; PULSE 85; RESP 18; TEMP 36.8; O2SAT 98; BMI 26.4
[2022-01-15 21:43] VITALS: BP 130/82; PULSE 74; RESP 16; O2SAT 99
--- NOTE | 2022-01-15 22:06 | USR_ITS ---
PROCEDURE INFORMATION: Exam: US Abdomen, Limited; Right Upper Quadrant Exam date and time: 01/15/2022 10:30 PM Age: 41 years old Clinical indication: Patient HX: Chronic RT flank pain x 2 weeks. ; Additional info: Abd pain TECHNIQUE: Imaging protocol: Real time ultrasound of the abdomen with image documentation. Limited exam focused on the right upper quadrant. COMPARISON: US abdomen complete* [id number] 11/23/2020 9:18 AM FINDINGS: Liver: Unremarkable liver, no focal abnormality. Gallbladder: No cholelithiasis. No gallbladder wall thickening or pericholecystic fluid. The gallbladder appears partially contracted. Biliary ducts: No biliary dilation, common duct measures 3.7 mm. Pancreas: The pancreas is poorly visualized at this time, likely obscured by bowel gas. Right kidney: Images of the right kidney show no hydronephrosis. US/US gall bladder [id number] IMPRESSION: 1. No cholelithiasis or biliary tree dilation. 2. Other findings discussed above.
[2022-01-15 22:14] LABS: Basophils # 0.1 10^3/uL (0.0-0.1); Basophils % 0.4 %; Eosinophils % 0.1 %; Hematocrit 39.2 % (37.0-47.0); Hemoglobin 12.5 g/dL (11.5-15.3); Lymphocytes # 1.8 10^3/uL (0.8-4.8); Lymphocytes % 11.4 %; Mean Corpuscular HGB Conc 31.9 g/dL (30.0-36.0); Mean Corpuscular Hemoglobin 25.6 pg (28.0-34.0); Mean Corpuscular Volume 80.2 fl (81-99); Mean Platelet Volume 11.5 fL (7.4-10.4); Monocytes % 6.3 %; Neutrophils # 12.96 10^3/uL (1.8-7.7); Neutrophils % 81.2 %; Nucleated Red Blood Cells % 0 %; Platelet Count 331 10^3/cmm (130-400); Red Blood Count 4.89 10^6/uL (4.1-5.3); Red Cell Distribution Width 13.9 % (12.1-15.1)
[2022-01-15 22:15] LABS: Add Urine Microscopic? NO; Charge for UA Resulting for Rev
[2022-01-15 22:23] VITALS: RESP 16
[2022-01-15] MEDS: HYDROmorphone 1 mg/mL INJ 1 mL IVP (22:23)
[2022-01-15] MEDS: ondansetron 2 mg/ML SDV 2 mL 4 MG IVP (22:24)
--- NOTE | 2022-01-15 22:27 | ED_ITS ---
HPI - Abdominal Pain General: Chief Complaint: Abdominal Pain Stated Complaint: ABD Pain\V Time Seen by Provider: 01/15/22 21:43 Source: patient Mode of arrival: ambulatory Limitations: no limitations History of Present Illness: 41-year-old female states she has been having abdominal pain for the last 2 to 3 weeks she is seen here little over a week ago diagnosed ovarian cyst she states that she had seen Dr. Johns she states that she has been taking Protonix but tonight she has had increased pain states pain is mainly in her epigastric region along with her right upper quadrant. She denies any fever denies any diarrhea. Associated Symptoms: Denies chills, dysuria and fever(s) Review of Systems Const: Denies: fever(s), chills, body aches or change in appetite Eyes: Denies: blurry vision or eye discomfort ENMT: Denies: throat pain or dental pain Card: Denies: chest pain Resp: Denies: dyspnea GI: Reports: abdominal pain : Denies: dysuria Musc: Denies: neck pain or back pain Skin/Breast: Denies: rash Neuro: Denies: headache(s) Psych: Denies: depression [place]/Lymph: Denies: easy bruising All/Imm: Denies: urticaria PFSH ED PFSH: Medical History No pertinent past medical history PVC (premature ventricular contraction) Surgical History History of dilation and curettage Family History Mother Breast cancer age 63 Family/Other Breast cancer paternal aunt Social History Smoking and tobacco status: former smoker Quit status (tobacco): has quit using tobacco Year quit tobacco: 2007 Alcohol intake: current Alcohol intake frequency: few times a month History of recent travel: No Physical Exam Const: COMMON NORMALS: no acute distress, patient oriented x3 and healthy appearing HENMT: COMMON NORMALS: normocephalic and atraumatic HEAD & SCALP: normocephalic and atraumatic Eye: COMMON NORMALS: Equal, round and reactive pupils present and EOMs intact bilaterally PUPIL: Yes Equal, round and reactive pupils present Neck/C-Spine: COMMON NORMALS: full ROM and supple Chest: COMMONS NORMALS: normal inspection of the chest and normal palpation of entire chest wall Resp: COMMON NORMALS: normal respiratory effort, No retractions, No use of accessory muscles and clear to auscultation bilaterally AUSCULTATION: clear to auscultation bilaterally Cardio: COMMON NORMALS: regular rate, regular rhythm and No murmurs present (Cardio) RATE: regular rate RHYTHM: regular rhythm GI: COMMON NORMALS: Normal to inspection, nondistended, normoactive bowel sounds present, Soft to palpation and no masses PALPATION: Yes Soft to palpation and Yes Tenderness to palpation present (GI) Details: RUQ Extremity: COMMON NORMALS: normal to inspection and full ROM Neuro: COMMON NORMALS: patient oriented x3, moves all extremities and no focal motor deficits Psych: COMMON NORMALS: mental status grossly normal, Normal thought process present and cooperative THOUGHT PROCESS: Normal thought process present Skin: COMMON NORMALS: no rashes or lesions noted and no wounds GENERAL SKIN EXAM: no rashes or lesions noted Course Vital Signs: Vital signs: Vital Signs Temperature 98.3 F 01/15/22 19:39 Pulse Rate 60 01/16/22 00:42 Respiratory Rate 14 01/16/22 00:42 Blood Pressure 126/88 01/16/22 00:42 Pulse Oximetry 99 01/16/22 00:42 Oxygen Delivery Me thod 01/16/22 00:42 MDM - Abdominal Pain Medical Decision Making Patient presents here with abdominal pain she again is seen to have an abdominal ovarian cyst on the right she has follow-up with Dr. England on Thursday her pain is improved we will place her on hydrocodone she is to follow-up Thursday scheduled return if worsening she understands agrees to plan. Lab Data : 01/15/22 22:03 01/15/22 22:03 Labs/Radiology: Radiology Impressions Gallbladder Ultrasound 01/15/22 22:06 IMPRESSION: 1. No cholelithiasis or biliary tree dilation. 2. Other findings discussed above. Abdomen/Pelvis CT 01/15/22 23:27 IMPRESSION: 1. 35 x 30 mm right adnexal/ovarian cyst. 16 mm dominant follicle versus small cyst in the left ovary. See above discussion. Small amount of right adnexal fluid, new in the interval. 2. No evidence to suggest appendicitis, however a normal appendix is not definitely visible. 3. No hydronephrosis of either kidney. No visible ureteral calculus. 4. No free air or significant bowel distention. 5. Other findings discussed above. COMMENTS: Consistent with the [place]'s Incidental Findings Committee white paper (J Am Leah Radiol 2018): Any incidental renal lesion less than 1 cm or classified as too small to characterize, or any incidental cystic renal lesion characterized as simple-appearing, is likely benign. No follow-up imaging is recommended for these lesions per consensus recommendations based on imaging criteria. Laboratory Results WBC 16.0 10^3/uL (4.0-10.0) H 01/15/22 22:03 RBC 4.89 10^6/uL (4.1-5.3) 01/15/22 22: Hgb 12.5 g/dL (11.5-15.3) 01/15/22 22: Hct 39.2 % (37.0-47.0) 01/15/22 22: MCV 80.2 fl (81-99) L 01/15/22 22:03 MCH 25.6 pg (28.0-34.0) L 01/15/22 22: MCHC 31.9 g/dL (30.0-36.0) 01/15/22 22: RDW 13.9 % (12.1-15.1) 01/15/22 22:03 Plt Count 331 10^3/cmm (130-400) 01/15/22 22:03 MPV 11.5 fL (7.4-10.4) H 01/15/22 22:03 Neut % (Auto) 81.2 % 01/15/22 22:03 Lymph % (Auto) 11.4 % 01/15/22 22:03 [place] % (Auto) 6.3 % 01/15/22 22: Eos % (Auto) 0.1 % 01/15/22 22: Baso % (Auto) 0.4 % 01/15/22 22:03 Neut # (Auto) 12.96 10^3/uL (1.8-7.7) H 01/15/22 22:03 Lymph # (Auto) 1.8 10^3/uL (0.8-4.8) 01/15/22 22:03 [place] # (Auto) 1.0 10^3/uL (0.2-0.9) H 01/15/22 22:03 Eos # (Auto) 0.0 10^3/uL (0.0-0.8) 01/15/22 22:03 Baso # (Auto) 0.1 10^3/uL (0.0-0.1) 01/15/22 22:03 Nucleated RBC % (auto) 0 % 01/15/22 22:03 Nucleated RBCs # 0.0 /100WBC 01/15/22 22:03 Sodium 138 mmol/L (136-145) 01/15/22 22:03 Potassium 3.7 mmol/L (3.5-5.1) 01/15/22 22:03 Chloride 100 mmol/L (98-107) 01/15/22 22:03 Carbon Dioxide 25 mmol/L (22-29) 01/15/22 22:03 Anion Gap 16.7 (5-19) 01/15/22 22:03 BUN 18 mg/dL (6-20) 01/15/22 22:03 Creatinine 0.7 mg/dL (0.5-0.9) 01/15/22 22:03 GFR Calculation 92.7 mL/min (90-130) 01/15/22 22:03 Glucose 100 mg/dL (65-115) 01/15/22 22:03 Calculated Osmolality 288 mOsm/kg (285-295) 01/15/22 22:03 Lactate 1.0 mmol/L (0.5-2.2) 01/15/22 22:05 Calcium 10.2 mg/dL (8.5-10.5) 01/15/22 22:03 Total Bilirubin 0.2 mg/dL (0.15-1.2) 01/15/22 22:03 AST 21 U/L (0-32) 01/15/22 22:03 ALT 24 U/L (0-33) 01/15/22 22:03 Alkaline Phosphatase 76 U/L (35-105) 01/15/22 22:03 Total Protein 8.0 g/dL (6.6-8.7) 01/15/22 22:03 Albumin 4.7 g/dL (3.5-5.2) 01/15/22 22:03 Globulin 3.3 g/dL (1.3-4.6) 01/15/22 22:03 Lipase 27 U/L (13-60) 01/15/22 22:03 HCG, Qual Negative (Negative) 01/15/22 22:03 Urine Color Yellow (Yellow) 01/15/22 22:05 Urine Appearance Clear (CLEAR) 01/15/22 22:05 Urine pH 6 (5-7) 01/15/22 22:05 Ur Specific [place] 1.015 (1.005-1.030) 01/15/22 22:05 Urine Protein Neg (Negative) 01/15/22 22:05 Urine Glucose (UA) Norm (Normal) 01/15/22 22: Urine Ketones Negative (Negative) 01/15/22 22:05 Urine Blood Neg (Negative) 01/15/22 22:05 Urine Nitrate Negative (Negative) 01/15/22 22:05 Urine Bilirubin Neg (Negative) 01/15/22 22: Urine Urobilinogen Norm mg/dL (Negative) 01/15/22 22:05 Ur Leukocyte Esterase Negative (Negative) 01/15/22 22:05 Discharge Plan Discharge Patient Disposition: Home Clinical Impression: Abdominal pain Qualifiers: Abdominal location: generalized Qualified Code(s): R10.84 - Generalized abdominal pain Condition: Stable Prescriptions: New hydrocodone-acetaminophen 5-325 mg tablet 1 tab PO Q6H PRN (Reason: pain) Qty: 14 0RF ondansetron 4 mg tablet,disintegrating 4 mg PO Q6H PRN (Reason: nausea and vomiting) Qty: 14 0RF No Action escitalopram oxalate [Lexapro] 20 mg tablet 20 mg PO DAILY Qty: 90 3RF doxycycline hyclate 100 mg capsule 100 mg PO BID Qty: 10 0RF fluticasone propion-salmeterol [Advair Diskus] 500-50 mcg/dose blister with device 1 inh inhalation BID Qty: 60 5RF ondansetron 4 mg tablet,disintegrating 4 mg PO Q8H PRN (Reason: nausea and vomiting) Qty: 15 0RF pantoprazole 40 mg tablet,delayed release (DR/EC) 40 mg PO DAILY Qty: 90 3RF dicyclomine 10 mg capsule 10 mg PO QID PRN (Reason: cramps) Qty: 60 0RF alprazolam [Xanax] 0.25 mg tablet 0.25 mg PO BID PRN (Reason: anxiety) Qty: 14 0RF Discharge Orders: Discharge ED (Routine); Ordered 01/16/22 Ordered By: Charbel Ayala Referrals: Xavier Johns MD [Primary Care Provider] - 1-3 days Discharge Diet: Advance as tolerated Discharge Activity: Resume usual activity Patient Instructions: Abdominal Pain (ED), Opioid Safety Coding Level of Care Code ED Associate Financial Analyst for Chg Fwd Exam Comprehensive
[2022-01-15 22:31] LABS: HCG, Serum Qual Negative (Negative)
[2022-01-15 22:32] LABS: Bilirubin Urine Neg (Negative); Blood Urine Neg (Negative); Glucose Urine UA Norm (Normal); Ketones Urine Negative (Negative); Leukocyte Esterase Urine Negative (Negative); Nitrate Urine Negative (Negative); Protein Urine Neg (Negative); Specific Gravity, Urine 1.015 (1.005-1.030); Urine Appearance Clear (CLEAR); Urine Color Yellow (Yellow); Urobilinogen Urine Norm (Negative); pH Urine 6 (5-7)
[2022-01-15 22:34] LABS: Alanine Aminotransferase 24 U/L (0-33); Albumin Level 4.7 g/dL (3.5-5.2); Alkaline Phosphatase 76 U/L (35-105); Anion Gap 16.7 (5-19); Aspartate Amino Transferase 21 U/L (0-32); Blood Urea Nitrogen 18 mg/dL (6-20); Calcium 10.2 mg/dL (8.5-10.5); Carbon Dioxide 25 mmol/L (22-29); Chloride 100 mmol/L (98-107); Globulin 3.3 g/dL (1.3-4.6); Glomerular Filtration Rate 92.7 mL/min (90-130); Glucose 100 mg/dL (65-115); Lipase 27 U/L (13-60); Osmolality Calculated 288 mOsm/kg (285-295); Potassium 3.7 mmol/L (3.5-5.1); Sodium 138 mmol/L (136-145); Total Bilirubin 0.2 mg/dL (0.15-1.2)
--- NOTE | 2022-01-15 23:27 | CTR_ITS ---
PROCEDURE INFORMATION: Exam: CT Abdomen And Pelvis With Contrast Exam date and time: 01/15/2022 11:47 PM Age: 41 years old Clinical indication: Abdominal pain; Additional info: Abd pain TECHNIQUE: Imaging protocol: Computed tomography of the abdomen and pelvis with contrast. Radiation optimization: All CT scans at this facility use at least one of these dose optimization techniques: automated exposure control; mA and/or kV adjustment per patient size (includes targeted exams where dose is matched to clinical indication); or iterative reconstruction. Contrast material: OMNI 350; Contrast volume: 100 ml; Contrast route: INTRAVENOUS (IV); COMPARISON: CT kidney stone [id number] 01/05/2022 8:23 PM RADIATION DOSE METRICS: Total DLP (mGy-cm): 661.05 FINDINGS: Lungs: The lung bases are clear. Liver: Unremarkable. Gallbladder and bile ducts: No definite gallbladder abnormality by CT. No biliary tree dilation. Pancreas: Unremarkable. Spleen: Unremarkable. Adrenal glands: Unremarkable. Kidneys and ureters: No hydronephrosis of either kidney. No visible ureteral calculus. Possible 5 mm cyst in the upper medial left kidney, too small to accurately characterize by CT. The kidneys otherwise enhance homogeneously. No perinephric fluid. Stomach and bowel: No significant bowel distention. There are no CT findings to strongly suggest diverticulitis. Appendix: The appendix is not identified with certainty, however no pericecal inflammatory changes are seen. Intraperitoneal space: No free intraperitoneal air, or generalized ascites. Vasculature: No evidence for abdominal aortic aneurysm. Lymph nodes: No retroperitoneal adenopathy. Urinary bladder: No visible calculus in the urinary bladder. Reproductive: 35 x 30 x 30 mm right adnexal/ovarian cyst, similar to the prior exam. A physiologic cyst is still possible. However other etiologies are not excluded, including PID/TOA, and neoplasm. The left ovary contains a 16 mm dominant follicle versus small cyst, newly visible in the interval. Significance uncertain due to relatively small size. Ultrasound could further evaluate these ovarian findings if felt clinically indicated, and could also be used for appropriate follow-up. Appropriate follow up is needed in this age group, to insure against a persistent or enlarging lesion/neoplasm. Small amount of right adnexal fluid, new in the interval. Bones/joints: No significant acute finding. Soft tissues: No significant acute finding. CT/CT abdomen pelvis w con* [id number] IMPRESSION: 1. 35 x 30 mm right adnexal/ovarian cyst. 16 mm dominant follicle versus small cyst in the left ovary. See above discussion. Small amount of right adnexal fluid, new in the interval. 2. No evidence to suggest appendicitis, however a normal appendix is not definitely visible. 3. No hydronephrosis of either kidney. No visible ureteral calculus. 4. No free air or significant bowel distention. 5. Other findings discussed above. COMMENTS: Consistent with the [place] [employer]'s Incidental Findings Committee white paper (J Am Leah Radiol 2018): Any incidental renal lesion less than 1 cm or classified as too small to characterize, or any incidental cystic renal lesion characterized as simple-appearing, is likely benign. No follow-up imaging is recommended for these lesions per consensus recommendations based on imaging criteria.
[2022-01-15 23:47] VITALS: BP 117/83; PULSE 88; RESP 16; O2SAT 95
[2022-01-15] MEDS: iohexol 350 mg/mL 500 mL Btl (per mL) IV (23:51)
[2022-01-16] MEDS: metoclopramide 5 mg/mL SDV 2 mL 10 MG IVP (00:16)
[2022-01-16] MEDS: diphenhydrAMINE 50 mg/mL SDV 1mL IVP (00:16)
[2022-01-16 00:42] VITALS: BP 126/88; PULSE 60; RESP 14; O2SAT 99
== END 2022-01-16 01:15 | disposition home or self-care (01) ==
PROVIDERS: Emergency Provider Emergency Medicine; PCP Internal Medicine
DX: R10.84 Generalized abdominal pain (principal); Z87.891 Personal history of nicotine dependence
CPT/HCPCS: 74177; 76705; 80053; 81003; 83605; 83690; 84703; 85025; 96374; 96375; 99285; J1170; J1200; J2405; J2765; Q9967

== ENCOUNTER → 2022-02-11 12:48 | Outpatient (BNVA) | payer OTHER, SELFPAY | PROVIDERS: PCP Internal Medicine; Visit Provider Obstetrics & Gynecology | DX: N83.291 Other ovarian cyst, right side (principal) | CPT/HCPCS: 76830 ==

== ENCOUNTER 2022-02-20 09:59 | Observation (INO) | payer OTHER, SELFPAY ==
[2022-02-20] VITALS (24 sets, daily range): BP systolic 93–129; BP diastolic 58–83; PULSE 56–109; RESP 16–18; TEMP 36.3–37.2; O2SAT 95–99; BMI 27.3
[2022-02-20] MEDS: sodium chloride 0.9% 1,000 ML 30 ML IV (06:40)
--- NOTE | 2022-02-20 06:44 | ANES.PREANE2 ---
Pre-Anesthetic Assessment Height/Weight: Height 1.73 m Weight 81.647 kg Temp Pulse Resp BP Pulse Ox O2 Del Method 97.6 F 90 18 126/76 99 02/20/22 06:09 02/20/22 06:09 02/20/22 06:09 02/20/22 06:09 02/20/22 06:09 02/20/22 06:09 Operation Date: 02/20/22 07:00 Proposed Procedures p Laparoscopic Right Oophorectomy 79788 ,N83.209(Right) - Matt England MD Familial anesthetic complications: None Was Beta Ammy taken within 24 hours: N/A Was Clonidine taken within 24 hours: N/A Last intake: Intake Last Liquid Date 02/19/22 Last Liquid Time 18:00 Last Solid Date 02/19/22 Last Solid Time 18:00 Social No alcohol and No tobacco Exam alert, oriented x 3, clear to auscultation bilaterally and regular rate & rhythm Airway Mallampati: Class II Dentition: loose (2 lower front teeth) CV/HEM Palpitations (PVCs) GI Gastroesophageal Reflux Disease Neuropsych Anxiety Anesthetic Plan ASA status: 2 Anesthesia: General Risk of > 500 ml blood loss (7ml/kg in children): No Medications/Allergies Home Medications Medication Instructions Recorded Confirmed Last Taken Type alprazolam 0.25 mg tablet (Xanax) 0.25 mg PO BID PRN anxiety #14 tabs 07/26/21 02/20/22 Unknown Rx fluticasone 500 mcg-salmeterol 50 1 inh inhalation BID #60 ea 10/17/21 02/20/22 Unknown Rx mcg/dose blistr powdr for inhalation (Advair Diskus) pantoprazole 40 mg tablet,delayed 40 mg PO DAILY #90 tabs 01/08/22 02/20/22 1 Day Ago Rx release ~02/19/22 Allergies Allergy/AdvReac Type Severity Reaction Status Date / Time Sulfa (Sulfonamide Allergy ALGY-Chills Verified 02/20/22 06:03 Antibiotics) Current Medications Generic Name Dose Route Start Last Admin Trade Name Freq PRN Reason Stop Dose Admin Sodium Chloride 1,000 mls @ 30 mls/hr 02/20/22 06:15 02/20/22 06:40 Sodium Chloride 0.9% IV 02/21/22 06:14 30 mls/hr .Q24H BOGDAN Administration PFSH Anesthesia Medical History No pertinent past medical history PVC (premature ventricular contraction) Surgical History History of dilation and curettage Family History (Updated 01/20/22 @ 09:19 by Mahsa Kang RN) Mother Breast cancer age 63 Family/Other Breast cancer paternal aunt, 60's Grandmother Heart disease maternal CHF Denies family history of Colon cancer Ovarian cancer Diabetes Clotting disorder Hyperlipidemia Anesthesia complication Bleeding disorder Hypertension Uterine cancer Thyroid condition Stroke Social History Smoking and tobacco status: former smoker Quit status (tobacco): has quit using tobacco Year quit tobacco: 2007 Alcohol intake: current Alcohol intake frequency: few times a month History of recent travel: No Data Anesthesia 02/20/22 06:30 02/20/22 06:30 Cardiac Studies: Echocardiogram Ultrasound 01/23/20 Cardiac Event Monitor 08/10/20
--- NOTE | 2022-02-20 06:52 | W.PM.OPSUD ---
Surgery/Procedure H&P Update DATE OF PROCEDURE: February 20, 2022 DATE H&P PERFORMED: 02/14/22 H&P UPDATE INFORMATION: I have reviewed H&P completed within last 30 days, I have examined patient prior to procedure and No changes to prior documentation PLANNED PROCEDURE: Operation Date: 02/20/22 07:00 Proposed Procedures p Laparoscopic Right Oophorectomy 05561 ,N83.209(Right) - Matt England MD
[2022-02-20 06:57] LABS: Basophils % 0.5 %; Eosinophils % 0.9 %; Hematocrit 39.1 % (37.0-47.0); Hemoglobin 12.2 g/dL (11.5-15.3); Lymphocytes # 1.3 10^3/uL (0.8-4.8); Lymphocytes % 28.2 %; Mean Corpuscular HGB Conc 31.2 g/dL (30.0-36.0); Mean Corpuscular Hemoglobin 24.9 pg (28.0-34.0); Mean Platelet Volume 11.9 fL (7.4-10.4); Monocytes # 0.4 10^3/uL (0.2-0.9); Monocytes % 9.9 %; Neutrophils # 2.67 10^3/uL (1.8-7.7); Neutrophils % 60.3 %; Nucleated Red Blood Cells % 0 %; Platelet Count 234 10^3/cmm (130-400); Red Blood Count 4.89 10^6/uL (4.1-5.3); White Blood Count 4.4 10^3/uL (4.0-10.0)
[2022-02-20 07:11] LABS: Anion Gap 15.9 (5-19); Blood Urea Nitrogen 14 mg/dL (6-20); Calcium 9.3 mg/dL (8.5-10.5); Carbon Dioxide 25 mmol/L (22-29); Chloride 97 mmol/L (98-107); Creatinine Clr Calc Pharmacy 209.5451; Glomerular Filtration Rate 176.8 mL/min (90-130); Glucose 95 mg/dL (65-115); Osmolality Calculated 278 mOsm/kg (285-295); Potassium 3.9 mmol/L (3.5-5.1); Sodium 134 mmol/L (136-145)
[2022-02-20] MEDS: ceFAZolin 1,000 mg SDV 2000 MG (07:30)
--- NOTE | 2022-02-20 08:52 | P.OP_ITS ---
Operative Report Date of procedure: February 20, 2022 Pre-op diagnosis: Right ovarian cystic mass Post-op diagnosis: Right ovarian endometrioma. Moderate endometriosis. Cul-de-sac adhesions Post-op findings: Right endometrioma adhesions and cul-de-sac adhesions. Moderate endometriosis Procedure done: Laparoscopic right salpingo-oophorectomy. Fulguration of endometriosis lesions. Lysis of adhesion. Surgeon: Matt England MD Estimated blood loss (mL): 50 IV fluids (mL): 800 Urine output (mL): 300 Procedure: After informed consent, the patient was taken to the operating room where general anesthesia was administered. Pre-Procedure Time-Out verifying the correct patient identity, correct procedure verified with consent, correct site and side, correct patient position, availability of correct implants and any special equipment or requirements was performed and acknowledge by the OR team. She was placed in the dorsal lithotomy position and prepped and draped in sterile fashion. The patient was examined under anesthesia and found to have a normal uterus with normal adnexa. A Mensah catheter was placed in the bladder. A weighted speculum was placed in the vagina, and the anterior lip of cervix was grasped with the single toothed tenaculum. The uterus was sounded to a measure 8 cm. A uterine manipulator was advanced into the endocervical and its bulb filled with NS. Tenaculum was removed after uterine manipulator was secured. The speculum was removed from the vagina. The attention was brought to abdomen after changing gloves. The base of the umbilicus was grasped with an Allis clamp and with 2 towel clamp bilaterally tenting up the umbilicus an intraumbilical incision was made with a scalpel. While tenting up on the abdomen, a Verres needle with sleeve was admitted into the intra-abdominal cavity. A saline drop test was performed and noted to be within normal limits. Pneumoperitoneum was attained with 4 liters of carbon dioxide. The gas was seen to flow freely with normal resistance, so the CO2 gas was advanced to a higher setting. The abdomen was insufflated to an adequate distension. Once an adequate distention was reached, the Verres needle was removed. Then a 5 mm Optiview trocar and cannula were inserted under direct visualization without complications. Trocars were removed and the laparoscope was inserted. At this time, a second incision was made 3 cm above the symphysis pubis, and a 5 mm trocar and sleeve were admitted into the abdomen under direct, laparoscopic visualization without complication then it was change to 10 mm trocar. A 5 mm blunt probe was advanced through the second trocar sleeve, and light manipulation of ovaries and uterus to assess the pelvis and posterior aspects was performed. The survey showed an enlarged right ovarian cystic mass adhered to the right side, cul-de-sac adhesions. A third incision was made in the left lower quadrant and the third trocar was inserted into the abdomen under direct visualization. Examination of the pelvis revealed findings as above. At this time, the right ovarian cystic mass noted to be adhered to the right fosa. Attention was turned to try to mobilized out of the pelvis, lysing adhesions an approximately 5 to 6 cm incision was made along the ovary. At this point, it was dissected initially using hydrodissection and using blunt dissection. Entry into the cyst was created. Suction was used to drain the chocolate like fluid at this time from the cyst. The right salpingo- oophorectomy was completed using the Voyant device. The right ovary and fal lopian tube were placed in the anterior cul-de-sac. The ovarian bed was then irrigated and dried. There was slight oozing noted near the edge of the ovary, obtained hemostasis using electrocautery with the Voyant device. The pelvis was then irrigated, and once hemostasis was assured, the Endo Catch bag was placed through the 10 mm port and the cyst wall components as well as the right ovary were placed in the Endo Catch bag and removed through the 10 mm incision without difficulty. At this time, the pelvis was again copiously irrigated and dried. Hemostasis was assured. A Seprafilm was applied to the right ovary for adhesion prevention. At this time, all instruments were removed under visualization. The umbilical incision was closed using 2 interrupted stitches of 2-0 Vicryl sutures and the skin was closed using interrupted stitches of 3-0 Vicryl suture. Dermabond placed after closure with 3-0 suture in the lateral ports. All instruments were removed. The instruments were removed from the vagina, and excellent hemostasis was noted. The patient tolerated the procedure well, and sponge, lap and needle count were correct times two. The patient taken to the recovery room in good condition.
[2022-02-20] MEDS: acetaminophen 1,000 MG/100 ML PIGGYBACK 400 MG IV (09:45)
[2022-02-20] MEDS: ketorolac 30 mg/mL INJ IVP ×3 (09:59→22:08)
[2022-02-20] MEDS: ondansetron 2 mg/ML SDV 2 mL 4 MG IVP ×2 (10:41→17:49)
[2022-02-20] MEDS: HYDROcodone-acetaminophen 5-325 mg Tablet PO ×3 (10:41→22:08)
[2022-02-20] MEDS: dextrose 5%-lactated ringers 1,000 ML 125 ML IV ×2 (10:41→19:10)
--- NOTE | 2022-02-20 14:10 | ANE.PACU2 ---
Inpatient post-anesthesia follow up: Airway intact: Yes Vital signs: Temperature 98.9 F Pulse Rate 109 Respiratory Rate 17 Blood Pressure 113/69 Pulse Oximetry 97 Oxygen Delivery Me thod Room Air Oxygen Flow Rate 6 Fraction of Inspir ed Oxygen Hydration adequate: Yes Nausea and vomiting: No Pain level: 1 Mental status: Baseline
[2022-02-20] MEDS: albuterol 2.5 mg/3 mL Neb INHALATION (16:17)
--- NOTE | 2022-02-20 17:33 | PC.NURSE ---
Addendum entered by Lo Jaquez RN 02/20/22 17:33: RT in room and did treatment and IS with pt Original Note: D
[2022-02-20] MEDS: hyDROXYzine 25 mg Capsule 50 MG PO (18:58)
[2022-02-20] MEDS: docusate sodium 100 mg Capsule PO (18:58)
[2022-02-20] MEDS: zolpidem 5 mg Tablet PO (22:13)
[2022-02-21] MEDS: dextrose 5%-lactated ringers 1,000 ML 125 ML IV (03:20)
[2022-02-21] MEDS: ketorolac 30 mg/mL INJ IVP (04:44)
[2022-02-21 04:47] VITALS: RESP 16
[2022-02-21 05:05] VITALS: BP 115/74; PULSE 80; RESP 16; O2SAT 97
[2022-02-21 05:29] LABS: Hematocrit 32.7 % (37.0-47.0); Hemoglobin 10.4 g/dL (11.5-15.3); Mean Corpuscular HGB Conc 31.8 g/dL (30.0-36.0); Mean Corpuscular Hemoglobin 25.2 pg (28.0-34.0); Mean Corpuscular Volume 79.4 fl (81-99); Mean Platelet Volume 11.8 fL (7.4-10.4); Platelet Count 218 10^3/cmm (130-400); Red Blood Count 4.12 10^6/uL (4.1-5.3); Red Cell Distribution Width 13.8 % (12.1-15.1); White Blood Count 7.5 10^3/uL (4.0-10.0)
[2022-02-21] MEDS: HYDROcodone-acetaminophen 5-325 mg Tablet PO (06:46)
[2022-02-21 08:00] VITALS: PULSE 95; RESP 16; O2SAT 98
--- NOTE | 2022-02-21 09:37 | PM.OBGYDC ---
Discharge Providers CHIEF TECHNOLOGIST Date of Admission: 02/20/22 09:59 Date of Discharge: 02/21/22 Attending Provider at Admission: Matt Ellsworth MD Attending Provider at Discharge: Matt Ellsworth MD Primary CHIEF TECHNOLOGIST: Matt Ellsworth MD Primary Care Provider: Xavier Johns MD Reason for Visit Reason for Visit: N83.209 Hospital Course Hospital Course Mrs. Marcelo 41-year-old female with a history of persistent right ovarian cystic mass. Admitted for planned laparoscopic right oophorectomy. The laparoscopic right oophorectomy was performed without complication. Lysis of adhesions were performed. Right ovarian mass consistent with endometrioma, cul-de-sac adhesions were noted, endometriosis lesions noted on left ovary. Multiple endometriosis lesions were fulgurated. The patient was counseled regarding findings highly suggestive of endometriosis. Overnight observation was uneventful. She is afebrile and hemodynamically stable postoperative day 1. Pain under control. Tolerating diet well. Ambulating without difficulty. She was counseled regarding pelvic rest for 6 weeks (no sex, no tampons, no vaginal douches). Return to the emergency room if any fever, increased bleeding or pain. Physical Exam Narrative: GA: Alert and oriented ?3. HEENT: WNL. Heart: Regular rate and rhythm. Lungs: Clear to auscultation bilaterally. Abdomen: Bowel sounds present, minimal tenderness, incision clean and dry, no redness, pain or edema. LIFT MECHANIC: No bleeding. Extremities: No edema, no cyanosis, no calves pain. Urinary Catheter Management: Mensah: Cath Placed During This Visit: yes, but has since been removed by the nurse Reason for Continuing Indwelling Catheter: Decision to DC Catheter Urinary Catheter Date of Insertion: 02/20/22 Urinary Catheter Time of Insertion: 07:30 Date Urinary Catheter Removed: 02/20/22 Time Urinary Catheter Discontinued: 13:50 History History History 2 Term 2 0 Miscarriages/Ectopic 0 Living Children 2 Discharge Data Studies Completed and Pending Pending at discharge Category Date Time Status Pathology: Surgical [PTH] Routine Pth 02/20/22 09:03 Received Laboratory Results WBC 7.5 10^3/uL (4.0-10.0) 02/21/22 05:15 RBC 4.12 10^6/uL (4.1-5.3) 02/21/22 05:15 Hgb 10.4 g/dL (11.5-15.3) L 02/21/22 05:15 Hct 32.7 % (37.0-47.0) L 02/21/22 05:15 MCV 79.4 fl (81-99) L 02/21/22 05:15 MCH 25.2 pg (28.0-34.0) L 02/21/22 05:15 MCHC 31.8 g/dL (30.0-36.0) 02/21/22 05:15 RDW 13.8 % (12.1-15.1) 02/21/22 05:15 Plt Count 218 10^3/cmm (130-400) 02/21/22 05:15 MPV 11.8 fL (7.4-10.4) H 02/21/22 05:15 Neut % (Auto) 60.3 % 02/20/22 06:30 Lymph % (Auto) 28.2 % 02/20/22 06:30 [place] % (Auto) 9.9 % 02/20/22 06:30 Eos % (Auto) 0.9 % 02/20/22 06:30 Baso % (Auto) 0.5 % 02/20/22 06:30 Neut # (Auto) 2.67 10^3/uL (1.8-7.7) 02/20/22 06:30 Lymph # (Auto) 1.3 10^3/uL (0.8-4.8) 02/20/22 06:30 [place] # (Auto) 0.4 10^3/uL (0.2-0.9) 02/20/22 06:30 Eos # (Auto) 0.0 10^3/uL (0.0-0.8) 02/20/22 06:30 Baso # (Auto) 0.0 10^3/uL (0.0-0.1) 02/20/22 06:30 Nucleated RBC % (auto) 0 % 02/20/22 06:30 Nucleated RBCs # 0.0 /100WBC 02/20/22 06:30 Sodium 134 mmol/L (136-145) L 02/20/22 06:30 Potassium 3.9 mmol/L (3.5-5.1) 02/20/22 06:30 Chloride 97 mmol/L (98-107) L 02/20/22 06:30 Carbon Dioxide 25 mmol/L (22-29) 02/20/22 06:30 Anion Gap 15.9 (5-19) 02/20/22 06:30 BUN 14 mg/dL (6-20) 02/20/22 06:30 Creatinine 0.4 mg/dL (0.5-0.9) L 02/20/22 06:30 GFR Calculation 176.8 mL/min (90-130) H 02/20/22 06:30 Glucose 95 mg/dL (65-115) 02/20/22 06:30 Calculated Osmolality 278 mOsm/kg (285-295) L 02/20/22 06:30 Calcium 9.3 mg/dL (8.5-10.5) 02/20/22 06:30 Blood Type A Positive 02/20/22 06:30 Rho(D) Type Positive 02/20/22 06:30 Antibody Screen Negative 02/20/22 06:30 Vitals Last Vital Signs Temp 97.5 F L 02/20/22 22:23 Pulse 80 02/21/22 05:05 Resp 16 02/21/22 05:05 BP 115/74 02/21/22 05:05 Pulse Ox 97 02/21/22 05:05 O2 Del Method 02/21/22 05:05 O2 Flow Rate 6 02/21/22 08:00 Discharge Plan Discharge Patient Disposition: Home Condition: Stable Prescriptions: New acetaminophen 325 mg capsule 325 mg PO Q4H PRN (Reason: fever or postoperative pain) Qty: 60 0RF ibuprofen 800 mg tablet 800 mg PO TID PRN (Reason: pain) Qty: 60 0RF hydrocodone-acetaminophen 5-325 mg tablet 1 tab PO Q4H PRN (Reason: pain) Qty: 60 0RF Iron (ferrous sulfate) 325 mg (65 mg iron) tablet 325 mg PO BID Qty: 60 0RF Colace 100 mg capsule 100 mg PO BID Qty: 60 0RF [place] 150 mg tablet 150 mg PO DAILY Qty: 30 0RF Continued fluticasone propion-salmeterol [Advair Diskus] 500-50 mcg/dose blister with device 1 inh inhalation BID Qty: 60 5RF pantoprazole 40 mg tablet,delayed release (DR/EC) 40 mg PO DAILY Qty: 90 3RF alprazolam [Xanax] 0.25 mg tablet 0.25 mg PO BID PRN (Reason: anxiety) Qty: 14 0RF Discharge Orders: Discharge Order (Routine); Ordered 02/21/22 Ordered By: Matt Ellsworth Referrals: Matt Ellsworth MD [Physician] - 03/11/22 9:15 am (* Your [address] Ellsworth is on 03/11/2022 at 9:15 am * Your 6 week appointment is with Dr. ellsworth is on 04/08/2022 at 9:00am) Discharge Diet: Advance as tolerated Discharge Activity: Limit activity as instructed Patient Instructions: Laparoscopic Oophorectomy (DC), Ovarian Cyst Removal (DC), OB Discharge Report, OB Laproscopic Surgery - [facility], OB Food/Drug Interaction Guide, Opioid Safety Activity Restrictions/Additional Instructions: 1. Please call [facility] clinic on next working day to make your post[-operative] appointment in [2] weeks. 2. Please stay home until you come back to the clinic on first post-operative check up. 3. Please follow instructions on your medications CAREFULLY. 4. If you have abdominal incision, do not cover it unless dressing is necessary because of drainage. OK to shower, but avoid bath. Leave steri-strips until they fall off. If they are still on one week after surgery, you may remove them. 5. If you had vaginal surgery or vaginal repair, Dr. Ellsworth may instruct you to take SITZ bath. 6. Yellow, blood tinged odorous vaginal discharge is usually normal after hysterectomy or vaginal surgeries. 7. No sexual intercourse, tampons, or douches until you are completely released from the post-operative care. 8. Avoid constipation by eating right and maybe using some Metamucil or Milk of Magnesia. 9. All prescription refills are given during the working hours. Please do no wait till it runs out. Call the clinic at [phone] before your medication runs out. The clinic will get in touch with your doctor to prescribe medications if necessary. 10. Please remain within 40 mile radius from our hospital because emergencies do happen now and then during the post-operative period. 11. If you have stairs at home, take one step at a time slowly and minimize the number of trips. It helps to stay in one floor for the next few days. No lifting except what you can lift by one hand until you are released from the post-operative care. 12. Driving is discouraged until you are well healed. It may be 3-4 weeks before you feel strong enough to drive. You should be able to turn and look through the rear window without pain and you should be able to push the brake pedal very hard without pain before you drive. No fast rules, but SAFETY should be your primary concern. DO NOT drive if you are on sedating medications such as narcotics. 13. Call the clinic (during working hours) to make urgent appointment or go to the Emergency room, if any of the following occurs: i. Vaginal bleeding becomes heavy, more than a period. ii. Incision becomes red and sore, or drains pus. iii. Your temperature is over 100.4 or you have chill. iv. IV site becomes red and swollen (a little ``knot?? is usually OK) v. Persistent nausea and vomiting vi. Persistent constipation or diarrhea vii. Rash or allergic reaction to medications. Discharge Attestations CHIEF TECHNOLOGIST Time Spent in Discharge Care*: greater than 30 min Coding Level of Care Code Acute Operations Consultant for Howie Chong
--- NOTE | 2022-02-21 10:09 | P.DS_ITS ---
Discharge Providers CERTIFIED CREDIT COUNSELOR Date of Admission: 02/20/22 09:59 Date of Discharge: 02/21/22 Attending Provider at Admission: Matt Ellsworth MD Attending Provider at Discharge: Matt Ellsworth MD Primary CERTIFIED CREDIT COUNSELOR: Matt Ellsworth MD Primary Care Provider: Xavier Johns MD Reason for Visit Reason for Visit: N83.209 Hospital Course Hospital Course Mrs. Mareclo 41-year-old female with a history of persistent right ovarian cystic mass. Admitted for planned laparoscopic right oophorectomy. The laparoscopic right oophorectomy was performed without complication. Lysis of adhesions were performed. Right ovarian mass consistent with endometrioma, cul-de-sac adhesions were noted, endometriosis lesions noted on left ovary. Multiple endometriosis lesions were fulgurated. The patient was counseled regarding findings highly suggestive of endometriosis. Overnight observation was uneventful. She is afebrile and hemodynamically stable postoperative day 1. Pain under control. Tolerating diet well. Ambulating without difficulty. She was counseled regarding pelvic rest for 6 weeks (no sex, no tampons, no vaginal douches). Return to the emergency room if any fever, increased bleeding or pain. Physical Exam Narrative: GA: Alert and oriented ?3. HEENT: WNL. Heart: Regular rate and rhythm. Lungs: Clear to auscultation bilaterally. Abdomen: Bowel sounds present, minimal tenderness, incision clean and dry, no redness, pain or edema. YARDING SUPERVISOR: No bleeding. Extremities: No edema, no cyanosis, no calves pain. Urinary Catheter Management: [place]: Cath Placed During This Visit: yes, but has since been removed by the nurse Reason for Continuing Indwelling Catheter: Decision to DC Catheter Urinary Catheter Date of Insertion: 02/20/22 Urinary Catheter Time of Insertion: 07:30 Date Urinary Catheter Removed: 02/20/22 Time Urinary Catheter Discontinued: 13:50 History History History 2 Term 2 0 Miscarriages/Ectopic 0 Living Children 2 Discharge Data Studies Completed and Pending Pending at discharge Category Date Time Status Pathology: Surgical [PTH] Routine Pth 02/20/22 09:03 Received Laboratory Results WBC 7.5 10^3/uL (4.0-10.0) 02/21/22 05:15 RBC 4.12 10^6/uL (4.1-5.3) 02/21/22 05:15 Hgb 10.4 g/dL (11.5-15.3) L 02/21/22 05:15 Hct 32.7 % (37.0-47.0) L 02/21/22 05:15 MCV 79.4 fl (81-99) L 02/21/22 05:15 MCH 25.2 pg (28.0-34.0) L 02/21/22 05:15 MCHC 31.8 g/dL (30.0-36.0) 02/21/22 05:15 RDW 13.8 % (12.1-15.1) 02/21/22 05:15 Plt Count 218 10^3/cmm (130-400) 02/21/22 05:15 MPV 11.8 fL (7.4-10.4) H 02/21/22 05:15 Neut % (Auto) 60.3 % 02/20/22 06:30 Lymph % (Auto) 28.2 % 02/20/22 06:30 [place] % (Auto) 9.9 % 02/20/22 06:30 Eos % (Auto) 0.9 % 02/20/22 06:30 Baso % (Auto) 0.5 % 02/20/22 06:30 Neut # (Auto) 2.67 10^3/uL (1.8-7.7) 02/20/22 06:30 Lymph # (Auto) 1.3 10^3/uL (0.8-4.8) 02/20/22 06:30 [place] # (Auto) 0.4 10^3/uL (0.2-0.9) 02/20/22 06:30 Eos # (Auto) 0.0 10^3/uL (0.0-0.8) 02/20/22 06:30 Baso # (Auto) 0.0 10^3/uL (0.0-0.1) 02/20/22 06:30 Nucleated RBC % (auto) 0 % 02/20/22 06:30 Nucleated RBCs # 0.0 /100WBC 02/20/22 06:30 Sodium 134 mmol/L (136-145) L 02/20/22 06:30 Potassium 3.9 mmol/L (3.5-5.1) 02/20/22 06:30 Chloride 97 mmol/L (98-107) L 02/20/22 06:30 Carbon Dioxide 25 mmol/L (22-29) 02/20/22 06:30 Anion Gap 15.9 (5-19) 02/20/22 06:30 BUN 14 mg/dL (6-20) 02/20/22 06:30 Creatinine 0.4 mg/dL (0.5-0.9) L 02/20/22 06:30 GFR Calculation 176.8 mL/min (90-130) H 02/20/22 06:30 Glucose 95 mg/dL (65-115) 02/20/22 06:30 Calculated Osmolality 278 mOsm/kg (285-295) L 02/20/22 06:30 Calcium 9.3 mg/dL (8.5-10.5) 02/20/22 06:30 Blood Type A Positive 02/20/22 06:30 Rho(D) Type Positive 02/20/22 06:30 Antibody Screen Negative 02/20/22 06:30 Vitals Last Vital Signs Temp 97.5 F L 02/20/22 22:23 Pulse 80 02/21/22 05:05 Resp 16 02/21/22 05:05 BP 115/74 02/21/22 05:05 Pulse Ox 97 02/21/22 05:05 O2 Del Method 02/21/22 05:05 O2 Flow Rate 6 02/21/22 08:00 Discharge Plan Discharge Patient Disposition: Home Condition: Stable Prescriptions: New acetaminophen 325 mg capsule 325 mg PO Q4H PRN (Reason: fever or postoperative pain) Qty: 60 0RF ibuprofen 800 mg tablet 800 mg PO TID PRN (Reason: pain) Qty: 60 0RF hydrocodone-acetaminophen 5-325 mg tablet 1 tab PO Q4H PRN (Reason: pain) Qty: 60 0RF Iron (ferrous sulfate) 325 mg (65 mg iron) tablet 325 mg PO BID Qty: 60 0RF Colace 100 mg capsule 100 mg PO BID Qty: 60 0RF [place] 150 mg tablet 150 mg PO DAILY Qty: 30 0RF Continued fluticasone propion-salmeterol [Advair Diskus] 500-50 mcg/dose blister with device 1 inh inhalation BID Qty: 60 5RF pantoprazole 40 mg tablet,delayed release (DR/EC) 40 mg PO DAILY Qty: 90 3RF alprazolam [Xanax] 0.25 mg tablet 0.25 mg PO BID PRN (Reason: anxiety) Qty: 14 0RF Discharge Orders: Discharge Order (Routine); Ordered 02/21/22 Ordered By: Matt Ellsworth Referrals: Matt Ellsworth MD [Physician] - 03/11/22 9:15 am (* Your [address] Ellsworth is on 03/11/2022 at 9:15 am * Your 6 week appointment is with Dr. ellsworth is on 04/08/2022 at 9:00am) Discharge Diet: Advance as tolerated Discharge Activity: Limit activity as instructed Activity Restrictions/Additional Instructions: 1. Please call [facility] on next working day to make your post[-operative] appointment in [2] weeks. 2. Please stay home until you come back to the clinic on first post-operative check up. 3. Please follow instructions on your medications CAREFULLY. 4. If you have abdominal incision, do not cover it unless dressing is necessary because of drainage. OK to shower, but avoid bath. Leave steri-strips until they fall off. If they are still on one week after surgery, you may remove them. 5. If you had vaginal surgery or vaginal repair, Dr. Ellsworth may instruct you to take SITZ bath. 6. Yellow, blood tinged odorous vaginal discharge is usually normal after hysterectomy or vaginal surgeries. 7. No sexual intercourse, tampons, or douches until you are completely released from the post-operative care. 8. Avoid constipation by eating right and maybe using some Metamucil or Milk of Magnesia. 9. All prescription refills are given during the working hours. Please do no wait till it runs out. Call the clinic at [phone] before your medication runs out. The clinic will get in touch with your doctor to prescribe medications if necessary. 10. Please remain within 40 mile radius from our hospital because emergencies do happen now and then during the post-operative period. 11. If you have stairs at home, take one step at a time slowly and minimize the number of trips. It helps to stay in one floor for the next few days. No lifting except what you can lift by one hand until you are released from the post-operative care. 12. Driving is discouraged until you are well healed. It may be 3-4 weeks before you feel strong enough to drive. You should be able to turn and look through the rear window without pain and you should be able to push the brake pedal very hard without pain before you drive. No fast rules, but SAFETY should be your primary concern. DO NOT drive if you are on sedating medications such as narcotics. 13. Call the clinic (during working hours) to make urgent appointment or go to the Emergency room, if any of the following occurs: i. Vaginal bleeding becomes heavy, more than a period. ii. Incision becomes red and sore, or drains pus. iii. Your temperature is over 100.4 or you have chill. iv. IV site becomes red and swollen (a little ``knot?? is usually OK) v. Persistent nausea and vomiting vi. Persistent constipation or diarrhea vii. Rash or allergic reaction to medications. Discharge Attestations CERTIFIED CREDIT COUNSELOR Time Spent in Discharge Care*: greater than 30 min Coding Level of Care Code Acute Commutator Presser for Howie Chong
[2022-02-21] MEDS: pantoprazole DR 40 mg Tablet PO (10:23)
[2022-02-21] MEDS: ibuprofen 800 mg tablet PO (10:23)
[2022-02-21] MEDS: docusate sodium 100 mg Capsule PO (10:23)
[2022-02-21 10:26] VITALS: BP 110/69; PULSE 90; RESP 18; TEMP 36.8; O2SAT 99
[2022-02-21 11:27] VITALS: BP 110/69; PULSE 90; RESP 18; TEMP 36.8; O2SAT 99
== END 2022-02-21 11:15 | disposition home or self-care (01) ==
LOC: OBGYN 10:00
PROVIDERS: Admitting Provider Obstetrics & Gynecology; PCP Internal Medicine; Visit Provider Obstetrics & Gynecology
PROC: (CPT 58661; principal; 2022-02-20 07:00)
DX: N80.101 Endometriosis of right ovary, unspecified depth (principal); N73.6 Female pelvic peritoneal adhesions (postinfective); K21.9 Gastro-esophageal reflux disease without esophagitis; Z87.891 Personal history of nicotine dependence
CPT/HCPCS: 58661; 36415; 80048; 81025; 85025; 85027; 86850; 86900; 88305; 90471; 90686; 94640; 96374; 96376; G0378; J0131; J0690; J1100; J1170; J1200; J1885; J2250; J2270; J2405; J2704; J2710; J3010; J3490; J7030; J7121; J7613

== ENCOUNTER 2023-06-12 09:15 | Outpatient (CLI) | payer OTHER, SELFPAY ==
--- NOTE | 2023-06-12 09:20 | MM_ITS ---
WS: [id number] BILATERAL SCREENING DIGITAL TOMOSYNTHESIS MAMMOGRAM WITH CAD HISTORY: SCREENING COMPARISON: None available. Bilateral CC and MLO views with tomosynthesis and synthetic mammography submitted. Computer aided det ection analyzed. Breast composition: The breasts are heterogeneously dense, which may obscure small masses. No suspici ous masses, microcalcifications or architectural distortion. IMPRESSION: MM/[place] [id number] BI-RADS: 1-Negative FOLLOW UP: 1 Year Follow-up
== END 2023-06-12 09:16 | disposition home or self-care (01) ==
LOC: RAD 09:16
PROVIDERS: Visit Provider Internal Medicine
DX: Z12.31 Encounter for screening mammogram for malignant neoplasm of breast (principal)
CPT/HCPCS: 77063; 77067

== ENCOUNTER → 2024-07-14 15:16 | Outpatient (BNVA) | payer OTHER, SELFPAY | PROVIDERS: PCP Internal Medicine; Visit Provider Internal Medicine Cardiovascular Disease | DX: R03.0 Elevated blood-pressure reading, without diagnosis of hypertension (principal); R53.83 Other fatigue; R10.9 Unspecified abdominal pain; I49.3 Ventricular premature depolarization | CPT/HCPCS: 36415; 80053; 82150; 83690; 85025; 85651 ==